=== PATIENT | female | born 1995 | race African-American/Black ===

== ENCOUNTER 2017-08-09 06:56 | Inpatient (IN) | payer MEDICAID, OTHER ==
[~2017-08-09] VITALS: Ht 152.4 cm; Wt 86.2 kg
[~2017-08-09 06:56] MED LIST: PREN-88 PO
[2017-08-09] MEDS ORDERED: DEXT 5%/LR + PITOCIN 20UNITS/L 1,000 ML IV SCH ×2 (07:39→21:40)
[2017-08-09] MEDS ORDERED: METHYLERGONOVINE MALEATE 0.2 MG/ML IM PRN ×2 (07:45→21:45)
[2017-08-09] MEDS ORDERED: BUTORPHANOL TARTRATE 2 MG/ML VIAL IV PRN (07:45)
[2017-08-09] MEDS ORDERED: NALOXONE HCL 0.4 MG/ML 1ML VIAL IM PRN (07:45)
[2017-08-09] MEDS ORDERED: LIDOCAINE HCL 1% 20ML VIAL (Pyxis) INJ INFIL SCH (07:45)
[2017-08-09] MEDS ORDERED: MISOPROSTOL 100MCG TABLET VG PRN (07:45)
[2017-08-09 07:56] LABS: BASOPHILS % 1.1 % (0.0-2.0); EOSINOPHILS % 1.1 % (0.0-5.0); HEMOGLOBIN. 13.4 g/dL (12.0-16.0); LYMPHOCYTES % 35.5 % (20.0-50.0); MEAN CORPUSCULAR HEMOGLOBIN 30.3 pg (28.0-32.0); MEAN CORPUSCULAR VOLUME 85.7 fL (81.0-99.0); MONOCYTES % 3.9 % (2.0-8.0); NEUTROPHILS % 58.4 % (40.0-76.0); PLATELET 286 x1000/uL (130-400); RED BLOOD CELL COUNT 4.43 mill/uL (4.2-5.4); RED CELL DISTRIBUTION WIDTH 13.9 % (11.6-14.6)
[2017-08-09] MEDS ORDERED: PENICILLIN G POTASSIUM 5 MMU in SODIUM CHLORIDE 0.9% 100 ML IV SCH (08:00)
[2017-08-09] MEDS: LACTATED RINGERS 1,000 ML IV SCH ×4 (08:09→20:16)
[2017-08-09 08:13] LABS: INR 0.9; PARTIAL THROMBOPLASTIN TIME 27.3 sec (23.4-31.0); PROTHROMBIN TIME 9.4 sec (9.4-11.6)
[2017-08-09] MEDS ORDERED: MISOPROSTOL 200MCG TABLET VG PRN (13:10)
[2017-08-09 13:21] LABS: RUBELLA IGG 15.6 IU/mL (4.99-10)
[2017-08-09 13:22] LABS: HEPATITIS B SURFACE ANTIGEN NEGATIVE
[2017-08-09] MEDS ORDERED: FENTANYL CITRATE/PF 50MCG/ML 5ML VIAL ONE (14:46)
[2017-08-09] MEDS ORDERED: BUPIVACAINE HCL/NS/PF EPIDURAL 100 ML EP ONE (14:47)
[2017-08-09] MEDS ORDERED: BUPIVACAINE HCL/PF 0.25% (2.5MG/ML) 10ML ONE (14:47)
[2017-08-09] MEDS ORDERED: EPHEDRINE SULFATE 50MG/ML VIAL ONE (15:21)
[2017-08-09 15:34] LABS: CLARITY URINE CLEAR (CLEAR); COLOR URINE YELLOW (YELLOW); KETONES URINE NEGATIVE (NEGATIVE); LEUKOCYTE ESTERASE URINE NEGATIVE (NEGATIVE); NITRITE URINE NEGATIVE (NEGATIVE); OCCULT BLOOD URINE NEGATIVE (NEGATIVE); PROTEIN URINE NEGATIVE (NEGATIVE); SPECIFIC GRAVITY URINE 1.016 (1.005-1.030)
[2017-08-09] MEDS ORDERED: ONDANSETRON HCL 4MG/2ML VIAL IV PRN (15:45)
[2017-08-09] MEDS ORDERED: BUPIVACAINE HCL/NS/PF EPIDURAL 100 ML EP SCH (15:45)
[2017-08-09 15:46] LABS: *AMPHETAMINES SCREEN URINE NEGATIVE (NEGATIVE); *BARBITURATES SCREEN URINE NEGATIVE (NEGATIVE); *BENZODIAZEPINES SCREEN URINE NEGATIVE (NEGATIVE); *COCAINE SCREEN URINE NEGATIVE (NEGATIVE); CANNABINOID URINE SCREEN NEGATIVE (NEGATIVE); METHADONE URINE SCREEN NEGATIVE (NEGATIVE); OPIATES URINE SCREEN NEGATIVE (NEGATIVE); PHENCYCLIDINE URINE SCREEN NEGATIVE (NEGATIVE)
[2017-08-09] MEDS ORDERED: PENICILLIN G POTASSIUM 2.5 MMU in DEXTROSE 5% WATER 50 ML IV SCH (16:00)
[2017-08-09] MEDS ORDERED: GLYCERIN/WITCH HAZEL LEAF MEDICATED PAD TOP PRN (21:45)
[2017-08-09] MEDS ORDERED: IBUPROFEN 400MG TABLET PO PRN (21:45)
[2017-08-09] MEDS ORDERED: LANOLIN OINT 0.25 GM TUBE TOP PRN (21:45)
[2017-08-09] MEDS ORDERED: BISACODYL 10MG SUPP PR PRN (21:45)
[2017-08-09] MEDS ORDERED: DIPHENHYDRAMINE 25MG CAPSULE PO PRN (21:45)
[2017-08-09] MEDS ORDERED: BENZOCAINE/LANOLIN/ALOE VERA SPRAY TOP PRN (21:45)
[2017-08-09] MEDS ORDERED: ACETAMINOPHEN WITH CODEINE 300/30MG TABLET PO PRN ×2 (21:45)
[2017-08-10] VITALS: BP 111/56
[2017-08-10 00:30] VITALS: BP 114/57
[2017-08-10 01:00] VITALS: BP 116/62
[2017-08-10 07:07] LABS: BASOPHILS % 0.6 % (0.0-2.0); EOSINOPHILS % 0.2 % (0.0-5.0); HEMOGLOBIN. 11.2 g/dL (12.0-16.0); MEAN CORPUSCULAR HEMOGLOBIN 28.9 pg (28.0-32.0); MEAN CORPUSCULAR VOLUME 85.2 fL (81.0-99.0); MEAN PLATELET VOLUME 7.6 fl (7.4-10.4); MONOCYTES % 4.4 % (2.0-8.0); NEUTROPHILS % 77.8 % (40.0-76.0); PLATELET 232 x1000/uL (130-400); RED BLOOD CELL COUNT 3.87 mill/uL (4.2-5.4); RED CELL DISTRIBUTION WIDTH 13.8 % (11.6-14.6)
[2017-08-10 08:00] VITALS: BP 97/56
[2017-08-10] MEDS: SIMETHICONE 80MG TABLET CHEW PO SCH ×4 (08:09→21:10)
[2017-08-10] MEDS: PRENATAL VIT/FE FUMARATE/FA TABLET PO SCH (08:09)
[2017-08-10] MEDS: MAGNESIUM/ALUMINUM HYDROXIDE/SIMETHICONE 30ML UDC PO SCH ×3 (08:09→17:00)
[2017-08-10] MEDS: FERROUS SULFATE 325MG TABLET PO SCH ×2 (13:35→17:00)
[2017-08-10 20:00] VITALS: BP 109/66
[2017-08-10] MEDS ORDERED: DOCUSATE SODIUM 100MG CAPSULE PO SCH (21:00)
[2017-08-11 06:27] VITALS: BP 102/53
[2017-08-11 07:50] VITALS: BP 104/53
[2017-08-11] MEDS ORDERED: INFLUENZA VIRUS VACCINE 0.5ML SYR IM ONE (09:00)
[2017-08-11] MEDS ORDERED: TETANUS, DIPHTHERIA, PERTUSSIS VAC/PF 0.5ML (>7YR OLD) IM ONE (09:00)
[2017-08-11] MEDS: FERROUS SULFATE 325MG TABLET PO SCH (09:11)
[2017-08-11] MEDS: PRENATAL VIT/FE FUMARATE/FA TABLET PO SCH (09:11)
[2017-08-11] MEDS: SIMETHICONE 80MG TABLET CHEW PO SCH (09:11)
== END 2017-08-11 11:00 | disposition home or self-care (01) | DRG 560 ==
LOC: L&D 06:56 → OBSVTOIN 06:56 → L&D 12:18 → 7EST PP/OB 23:45
PROVIDERS: ADMIT Obstetrics & Gynecology; ATTEND Obstetrics & Gynecology
PROC: 3E0R3BZ Introduction of Anesthetic Agent into Spinal Canal, Percutaneous Approach (ICD-10-PCS; 2017-08-09)
PROC: 00HU33Z Insertion of Infusion Device into Spinal Canal, Percutaneous Approach (ICD-10-PCS; 2017-08-09)
PROC: 10E0XZZ Delivery of Products of Conception, External Approach (ICD-10-PCS; principal; 2017-08-09 23:00)
DX: O80 Encounter for full-term uncomplicated delivery (principal); Z23 Encounter for immunization; Z37.0 Single live birth; Z3A.39 39 weeks gestation of pregnancy
CPT/HCPCS: 36415; 80305; 81003; 85025; 85610; 85730; 86592; 86703; 86762; 86850; 86900; 87340; 90686; 90715; G0378; J0171; J0595; J2405; J2540; J2590; J3010; J3490; J7050; J7060; J7120; A4315

== ENCOUNTER 2025-02-19 06:35 | Emergency (ER) | payer OTHER, MEDICAID ==
[~2025-02-19] VITALS: Ht 157.5 cm; Wt 82.2 kg
[2025-02-19 06:42] VITALS: TEMP 37.1; O2SAT 98
[2025-02-19] MEDS ORDERED: METH-653 MT (08:50)
[2025-02-19] MEDS ORDERED: IBUP-2029 MT (08:50)
[2025-02-19] MEDS ORDERED: LIDO700A30 TP (08:50)
[2025-02-19] MEDS: KETOROLAC 30MG/ML VIAL IM ONE (08:58)
[2025-02-19] MEDS: METHOCARBAMOL 750MG TABLET PO SCH (08:59)
[2025-02-19 09:05] VITALS: BP 124/64; PULSE 99; RESP 16; O2SAT 99
== END 2025-02-19 09:09 | disposition home or self-care (01) ==
LOC: ER 06:35
DX: S33.5XXA Sprain of ligaments of lumbar spine, initial encounter (principal); V89.2XXA Person injured in unspecified motor-vehicle accident, traffic, initial encounter; Y93.89 Activity, other specified; Y92.410 Unspecified street and highway as the place of occurrence of the external cause; Y99.8 Other external cause status
CPT/HCPCS: 99283; 96372; J1885